=== PATIENT | female | born 1975 ===

== ENCOUNTER 2017-06-27 05:45 | Day surgery (SDC) | payer OTHER ==
[2017-06-27] MEDS ORDERED: RECTICARE30 GM TOP (08:14)
[2017-06-27] MEDS ORDERED: PERCOCET 5-3251 EACH PO (08:14)
== END 2017-06-27 13:45 | disposition home or self-care (01) ==
LOC: CIR.AMB 05:45
DX: K60.1 Chronic anal fissure (principal)